=== PATIENT | female | born 1990 | race Asian ===

== ENCOUNTER 2016-05-30 03:20 | Emergency (ER) | payer SELFPAY ==
[2016-05-30] MEDS ORDERED: OXYTOCIN IV ONE (03:48)
[2016-05-30] MEDS ORDERED: [UNRECOGNIZED DRUG - OTHER] IV ONE (03:48)
--- NOTE | 2016-05-30 03:53 | ED Physician Chart ---
Chief Complaint/HPI - Patient Information Date Seen:: 05/30/16 Time Seen:: 03:28 Chief Complaint:: "having a baby" History of Present Illness:: 26-year-old female , 37 weeks with acute, severe, labor contractions that started 4-5 hours prior to arrival to the ER. Has associated nearly birthed male infant coming from her vagina. Also had associated sensation of feeling "cold" History limited given current clinical situation History collected after the birthing process was over and both mom and baby were stabilized. Historian:: Patient Review:: Nurse's Note Reviewed Review of Systems - Review of Systems Other: Complete system review otherwise unremarkable except as noted in history of present illness. Past Medical History - Past Medical History Past Medical History: No significant medical hx Family History: None Social History: Non Smoker, No Alcohol, No Drug Use, Other (lives with family) Surgical History: None Psychiatricy History: None Medication: None Family Medical History - Family Member Mother History Unknown: Yes Ethnicity: Non- Physical Exam - Physical Examination Other:: INITIAL VITAL SIGNS: Reviewed by me GENERAL: Alert and interactive. Moderate distress due to labor HEAD: Head is normocephalic and atraumatic EYES: EOMI. PERRL. No scleral icterus. No conjunctival injection ENT: Moist mucous membranes. NECK: Supple. No masses. Full range of motion RESPIRATORY: No tachypnea. Clear breath sounds bilaterally. No wheezing, rales, or rhonchi CV: Regular rate and rhythm. No murmurs, rubs, or gallops ABDOMEN: Consistent with uterine contractions and labor. EXTREMITIES: No deformity. No cyanosis. No edema. SKIN: Warm and dry. No obvious rashes. NEUROLOGIC: Alert and oriented. Face is symmetric. Speech is normal. Moves all extremities equally. Motor and sensory distally intact. : Nearly delivered infant with slight active bleeding. Assessment - Procedures Procedures:: Emergent vaginal delivery by me 37 week male baby spontaneous vaginal delivery. Patient in the back of a sedan with baby partially delivered. Could palpate through patient's pants. Removed patient's pants and baby delivered immediately. Several moments later spontaneous delivery of placenta. Minor to moderate vaginal bleeding. bleeding resolving. Second-degree vaginal tears. Baby's Apgars 10 out of 10. Mom alert and oriented. No complications. Informed Consent: Procedure/risk/benefits explained by MD: Yes (presumed, emergent delivery) ED Septic Shock - . Is Septic Shock (SBP<90, OR Lactate>4 mmol\\L) present?: No Reassessment (Disposition) - Reassessment Reassessment:: 26 y/o female now . Emergent delivery by me in back of car in parking lot. No complications. Mom and baby transferred immediately to the [facility] and and transported into the emergency department. Placenta delivered spontaneously. Placenta appears completely intact. The baby appears very healthy. 10 out of 10 Apgars. Cord clamped. Mom appears to have some second- degree vaginal lacerations. Abdomen palpated with firm uterus noted. 20 mg Pitocin into 1 L normal saline administered IV. Vital signs on mom looked good. Discussed with Dr. Diehl/OBGYN at [facility] who accepts patient and baby for transfer. Per Dr. Diehl we will not repair vaginal tears this time we will have him further assess. Arrangements made for transfer. Reassessment Condition:: Improved - Diagnosis Diagnosis:: Acute Vaginal delivery - Patient Disposition Accepting Physician:: Dr. Diehl Discussion with Medical Provider:: Spoke to Dr. Diehl [facility], arrangements for transfer to [facility]. Patient to go to room 1110 at the L&D Department under the care of Dr. Diehl. Time:: 04:20 Condition at Disposition:: Stable
[2016-05-30 04:11] LABS: % BASOPHILS 0.4 % (0.0-2.0); % EOSINOPHILS 0.4 % (0.0-5.0); % MONOCYTES 4.8 % (2.0-10.0); % NEUTROPHILS 61.4 % (40.0-80.0); HEMATOCRIT 44.5 % (35.0-45.0); HEMOGLOBIN 14.7 gm/dL (11.7-15.5); MEAN CELL VOLUME 86.4 fl (81-100); MEAN CORPUSCULAR HEMOGLOBIN 28.6 pg (27.0-31.0); MEAN CORPUSCULAR HGB CONC 33.1 pg (28.0-36.0); MEAN PLATELET VOLUME 11.6 fl; NEUTROPHILE ABSOLUTE 7.1 Th/cmm (1.8-8.0); PLATELET COUNT 185 Th/cmm (150-400); RED BLOOD COUNT 5.15 Mil/cmm (3.80-5.10); RED CELL DISTRIBUTION WIDTH 13.8 % (11.5-20.0); WHITE BLOOD COUNT 11.3 Th/cmm (4.8-10.8)
[2016-05-30 04:19] VITALS: BP 135/85
[2016-05-30 04:34] LABS: ALB/GLOB RATIO 1.1 (1.0-1.8); ALKALINE PHOSPHATASE 263 U/L (34-104); ANION GAP 18.6 (7.0-16.0); BILIRUBIN,TOTAL 0.4 mg/dL (0.3-1.0); BUN - UREA NITROGEN 11 mg/dL (7-25); BUN/CREATININE RATIO 15.7; CALCIUM SERUM 9.6 mg/dL (8.6-10.3); CARBON DIOXIDE 19.1 mEq/L (21.0-31.0); CHLORIDE 103 mEq/L (98-107); CREATININE - SERUM 0.7 mg/dL (0.6-1.2); GLUCOSE 100 mg/dL (70-105); POTASSIUM SERUM 3.7 mEq/L (3.5-5.1); SGOT 25 U/L (13-39); SGPT/ALT 12 U/L (7-52); SODIUM SERUM 137 mEq/L (136-145)
[2016-05-30 04:38] LABS: PROTHROMBIN TIME (TEST) 8.9 SECONDS (9.5-11.5)
[2016-05-30 04:39] LABS: INR 0.8 (0.5-1.4)
== END 2016-05-30 06:27 | disposition short-term general hospital (02) ==
LOC: ER 03:20
DX: O80 Encounter for full-term uncomplicated delivery (principal); Z3A.37 37 weeks gestation of pregnancy
CPT/HCPCS: 36415-UA; 80053-TC; 85025-TC; 85610-TC; 85730-TC; X6666